=== PATIENT | female | born 2000 | race Two or more races ===

== ENCOUNTER 2025-02-01 13:03 | Outpatient (REF) | payer OTHER, SELFPAY ==
[2025-02-03 12:08] LABS: Age Gdln ACOG Testing Note (.); IGP, rfx Aptima HPV ASCU Note (.)
== END 2025-02-01 13:04 | disposition home or self-care (01) ==
LOC: LAB 13:03
PROVIDERS: PCP Physician Assistant; Visit Provider Physician Assistant
DX: Z01.419 Encounter for gynecological examination (general) (routine) without abnormal findings (principal)
CPT/HCPCS: 88175